=== PATIENT | male | born 1970 | race Two or more races ===

== ENCOUNTER 2019-01-18 16:00 | Emergency (ER) | payer SELFPAY ==
[~2019-01-18] VITALS: Ht 152.4 cm; Wt 73.9 kg
[2019-01-18 16:10] VITALS: BP 132/80
[2019-01-18] MEDS ORDERED: UNOBMED (16:10)
--- NOTE | 2019-01-18 16:15 | NUR ---
ED Nurse Note: pt presents to ED c/o L rib pain from falling 2-3 hours ago at work. he rates his pain an 8 with movement and reports that it radiates to the front side. at rest the pain is a 5/10. pt denies any other symptoms at this time.
--- NOTE | 2019-01-18 16:44 | Diagnostic Imaging Report ---
Indication: Trauma, left-sided rib pain Technique: One view of the chest, 2 views of the left ribs Comparison: none Findings: Chest radiograph demonstrates a calcified granuloma in the right costophrenic sulcus. Lungs and pleural spaces are clear. The heart size is normal. No evidence of acute rib fracture. No pneumothorax Impression: No acute process Evidence of old granulomatous disease in the right lung
[2019-01-18] MEDS ORDERED: Ketorolac 30mg Inj IM ONE (16:45)
[2019-01-18] MEDS ORDERED: LIDODERM700 M1 TOPIC (16:48)
[2019-01-18] MEDS ORDERED: IBUPROFEN600 MG ORAL (16:48)
--- NOTE | 2019-01-18 16:48 | Emergency Room Report ---
History of Present Illness General Chief Complaint: Pain Source: Patient Present Illness HPI 48-year-old male with no significant past medical history here complaining of pain in the left sided ribs after a fall today. Patient reports that he was walking the street as he tripped he fell on the left side of his chest. Denies any head injury, loss of consciousness, dizziness, nausea vomiting. Patient rating the pain left medial chest 5 out of 10 without radiation. Denies tingling and numbness. Denies difficulty breathing, diffuse chest pain, shortness of breath. Has not taken medication for pain. Denies all other injuries. No tenderness is noted to palpation at the site of impact. No ecchymosis noted no crepitus noted, no hyperresonance auscultated Allergies: Coded Allergies: No Known Allergies (Unverified , 01/18/19) Patient History Past Medical History: see triage record Past Surgical History: unable to obtain Pertinent Family History: none Immunizations: UTD Reviewed Nursing Documentation: PMH: Agreed; PSxH: Agreed Nursing Documentation-PMH Past Medical History: No History, Except For Review of Systems All Other Systems: negative except mentioned in HPI Physical Exam Vital Signs Date Time Temp Pulse Resp B/P (MAP) Pulse Ox O2 Delivery O2 Flow Rate FiO2 01/18/19 16:05 98.4 71 18 132/80 (97) 98 Room Air Sp02 EP Interpretation: reviewed General Appearance: no apparent distress, alert, GCS 15, non-toxic Head: normocephalic, atraumatic Eyes: bilateral eye normal inspection, bilateral eye PERRL ENT: hearing grossly normal, normal pharynx, no angioedema, normal voice Neck: full range of motion, supple, supple/symm/no masses Respiratory: chest non-tender, lungs clear, normal breath sounds, no rhonchi, no respiratory distress, no wheezing, speaking full sentences Cardiovascular #1: regular rate, rhythm, no edema, no murmur, normal capillary refill Gastrointestinal: normal bowel sounds, non tender, soft, non-distended, no guarding, no rebound Genitourinary: normal inspection, no CVA tenderness Musculoskeletal: back normal, gait/station normal, normal range of motion, non- tender Neurologic: alert, oriented x3, responsive, motor strength/tone normal, sensory intact, speech normal Psychiatric: judgement/insight normal, memory normal, mood/affect normal, no suicidal/homicidal ideation Skin: no rash Lymphatic: no adenopathy Medical Decision Making PA Attestation All my diagnosis and treatment plans were reviewed ad discussed with my supervising physician Dr. Oh Diagnostic Impression: Primary Impression: Rib contusion ER Course 48-year-old male with no significant past medical history here complaining of pain in the left sided ribs after a fall today. Patient reports that he was walking the street as he tripped he fell on the left side of his chest. Denies any head injury, loss of consciousness, dizziness, nausea vomiting. Patient rating the pain left medial chest 5 out of 10 without radiation. Denies tingling and numbness. Denies difficulty breathing, diffuse chest pain, shortness of breath. Has not taken medication for pain. Denies all other injuries. No tenderness is noted to palpation at the site of impact. No ecchymosis noted no crepitus noted, no hyperresonance auscultated Ddx considered but are not limited to: Rib fracture versus contusion versus pneumothorax Vital signs: are WNL, pt. is afebrile H&PE are most consistent with rib contusion ORDERS: Chest x-ray, rib, ibuprofen, lidocaine patch ED INTERVENTIONS: Toradol DISCHARGE: At this time pt. is stable for d/c to home. Will provide printed patient care instructions, and any necessary prescriptions. Care plan and follow up instructions have been discussed with the patient prior to discharge. Take medication as directed follow-up with primary care provider if worsening symptoms return to the emergency room Chest X-Ray Diagnostic Results Chest X-Ray Diagnostic Results : Chest X-Ray Ordered: Yes # of Views/Limited/Complete: 1 View Indication: Other EP Interpretation: Yes PA Xray: Interpretation reviewed, by supervising MD, and agrees with findings. Interpretation: no consolidation, no effusion, no pneumothorax Impression: No acute disease Electronically Signed by: Brandee Ying PA-C Other X-Ray Diagnostic Results Other X-Ray Diagnostic Results : X-Ray ordered: Left-sided rib series # of Views/Limited Vs Complete: 3 View Indication: Pain EP Interpretation: Yes PA Xray: Interpretation reviewed, by supervising MD, and agrees with findings. Interpretation: no dislocation, no soft tissue swelling, no fractures Impression: No acute disease Electronically Signed by: Brandee Ying PA-C Last Vital Signs Date Time Temp Pulse Resp B/P (MAP) Pulse Ox O2 Delivery O2 Flow Rate FiO2 01/18/19 16:05 98.4 71 18 132/80 (97) 98 Room Air Disposition: HOME, SELF-CARE Condition: Stable Scripts Lidocaine Patch* (Lidoderm Patch*) 1 Each Adh..patch 1 PATCH TOPIC DAILY, #10 PATCH 0 Refills Patch(es) may remain in place for up to 12 hours in any 24-hour period. Prov: Brandee Pettit 01/18/19 Ibuprofen* (MOTRIN*) 600 Mg Tablet 600 MG ORAL Q6H PRN for For Pain, #30 TAB Prov: Brandee Pettit 01/18/19 Patient Instructions: Rib Contusion Additional Instructions: Take medication as directed follow-up with your primary care provider worsening symptoms return to the emergency room Brandee Pettit Jan 18, 2019 16:47
[2019-01-18 16:56] VITALS: BP 127/71
--- NOTE | 2019-01-18 16:58 | NUR ---
ER DISCHARGE NOTE: Patient is cleared to be discharged per ERMD, pt is aox4, on room air, with stable vital signs. pt was given dc and prescription instructions, pt was able to verbalize understanding, pt id band removed without complications. pt is able to ambulate with steady gait. pt took all belongings.
== END 2019-01-18 16:58 | disposition home or self-care (01) ==
LOC: EMR 16:46
DX: S20.212A Contusion of left front wall of thorax, initial encounter (principal); W01.0XXA Fall on same level from slipping, tripping and stumbling without subsequent striking against object, initial encounter; Y93.01 Activity, walking, marching and hiking; Y92.410 Unspecified street and highway as the place of occurrence of the external cause
CPT/HCPCS: 71101; 96372; 99283; J1885

== ENCOUNTER 2019-01-24 10:56 | Emergency (ER) | payer SELFPAY ==
[~2019-01-24] VITALS: Ht 165.9 cm; Wt 73.9 kg
[~2019-01-24 10:56] MED LIST: IBUPROFEN600 MG ORAL; LIDODERM700 M1 TOPIC; UNOBMED
[2019-01-24] MEDS ORDERED: HYDROcodone/Acetamin 5/325 tab ORAL ONE (11:30)
[2019-01-24] MEDS ORDERED: Cyclobenzaprine 10mg Tab ORAL ONE (11:30)
--- NOTE | 2019-01-24 11:30 | Emergency Room Report ---
History of Present Illness General Chief Complaint: Pain Source: Patient, Medical Record Present Illness HPI 48yo M comes to the ER with complaints of sharp, achy, moderate intensity, nonradiating left flank pain status post fall last week. He has tried Motrin and lidocaine patches with minimal relief, he denies hematuria, vomiting, diarrhea, and reports the pain is just not gotten much better. Also denies shortness of breath, chest pain, syncope, loss of consciousness, any other complaints. Allergies: Coded Allergies: No Known Allergies (Unverified , 01/18/19) Patient History Past Medical History: see triage record Social History: Denies: drug use Reviewed Nursing Documentation: PMH: Agreed; PSxH: Agreed Nursing Documentation-PMH Past Medical History: No History, Except For Hx Cardiac Problems: No - HIGH CHOLESTEROL Review of Systems All Other Systems: negative except mentioned in HPI Physical Exam Vital Signs Date Time Temp Pulse Resp B/P (MAP) Pulse Ox O2 Delivery O2 Flow Rate FiO2 01/24/19 11:03 98.2 76 18 127/83 (98) 96 Room Air Sp02 EP Interpretation: reviewed, normal General Appearance: no apparent distress, alert, non-toxic Head: normocephalic Eyes: bilateral eye normal inspection, bilateral eye PERRL, bilateral eye EOMI ENT: normal ENT inspection, hearing grossly normal, normal pharynx, no angioedema, normal voice, moist mucus membranes Neck: normal inspection, full range of motion, supple, supple/symm/no masses Respiratory: chest non-tender, lungs clear, normal breath sounds, chest symmetrical, palpation of chest normal Cardiovascular #1: normal peripheral pulses, regular rate, rhythm Cardiovascular #2: 2+ radial (R), 2+ radial (L) Gastrointestinal: normal inspection, non tender, soft, no mass, no guarding, no rebound Rectal: deferred Genitourinary: normal inspection, no CVA tenderness Musculoskeletal: back normal, gait/station normal, normal range of motion, non- tender, no calf tenderness Neurologic: alert, responsive, 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 Exam is unremarkable. CXR and CT a/p without acute dz. Patient given flexeril and norco here and feels better, will dc with pain control. Chest X-Ray Diagnostic Results Chest X-Ray Diagnostic Results : Chest X-Ray Ordered: Yes # of Views/Limited/Complete: 2 View Indication: Other - rib pain EP Interpretation: Yes Interpretation: no consolidation, no effusion, no pneumothorax, no acute cardiopulmonary disease Impression: No acute disease Electronically Signed by: Josefa Goodman MD CT/MRI/US Diagnostic Results CT/MRI/US Diagnostic Results : Imaging Test Ordered: ct abdomen/pelvis w/o contrast Impression per radiology read, no acute dz. Last Vital Signs Date Time Temp Pulse Resp B/P (MAP) Pulse Ox O2 Delivery O2 Flow Rate FiO2 01/24/19 11:03 98.2 76 18 127/83 (98) 96 Room Air Disposition: HOME, SELF-CARE Condition: Stable JOSEFA GOODMAN M.D Jan 24, 2019 11:30
--- NOTE | 2019-01-24 11:32 | NUR ---
ED Nurse Note: Patient walked in to ER c/o right side lateral pain related to s/p fall. Patient stated that he was walking and was not paying attention on the road, he slipped on the ground and landed on his side of his body. No bruising or any skin injury noted. Per patient he did not hit his head when he fell. Right now hes feeling aching pain on the left side of his body of pain scale of 8/10.
[2019-01-24 11:38] VITALS: BP 132/85
--- NOTE | 2019-01-24 11:51 | NUR ---
ED Nurse Note: patient was taken to CT room for CT scan
--- NOTE | 2019-01-24 12:00 | NUR ---
ED Nurse Note: Patient went back to the room
--- NOTE | 2019-01-24 12:25 | NUR ---
ED Nurse Note: Patient was taken to x-ray room for x-ray
--- NOTE | 2019-01-24 12:34 | NUR ---
ED Nurse Note: came back to the room from x-ray room
--- NOTE | 2019-01-24 12:48 | Diagnostic Imaging Report ---
Indication: Abdominal pain, status post trauma Technique: Spiral acquisitions obtained through the abdomen and pelvis. No oral contrast utilized, per emergency room physician request No IV contrast utilized, per referring physician request.. Multiplanar reconstructions were generated. Total dose length product 1197 mGycm. CTDIvol(s) 21 mGy. Dose reduction achieved using automated exposure control Comparison: None Findings: No evidence of bony fracture or soft tissue contusion demonstrated. No evidence of intraperitoneal or retroperitoneal bleed demonstrated. Lack of enteric contrast limits assessment of the GI tract. The appendix is normal. There are colonic diverticula. No evidence of diverticulitis. No small bowel distention. No free or loculated intraperitoneal gas or fluid is evident. The distal esophagus, stomach, duodenum are unremarkable. Lack of IV contrast limits assessment of the solid organs. The gallbladder is contracted, contains one or more gallstones. No biliary ductal dilatation demonstrated. The pancreas, spleen, adrenals, kidneys are unremarkable. No retroperitoneal or mesenteric mass or adenopathy. No pelvic mass or adenopathy. The prostate is prominent. The included lung bases demonstrate a calcified granuloma in the right costophrenic sulcus. Groundglass opacities are seen at the lung bases bilaterally. Impression: Limited assessment of the solid organs, due to lack of IV contrast administration. 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
[2019-01-24] MEDS ORDERED: CYCLOBENZAPRINE10 MG ORAL (13:06)
[2019-01-24] MEDS ORDERED: NORCO 5-325 TA1 EACH ORAL (13:07)
--- NOTE | 2019-01-24 13:12 | NUR ---
ER DISCHARGE NOTE: Patient is cleared to be discharged per ERMD, pt is aox4, on room air, with stable vital signs. pt was given dc and prescription instructions, pt was able to verbalize understanding, pt id band removed. pt is able to ambulate with steady gait. pt took all belongings.
--- NOTE | 2019-01-24 15:01 | Diagnostic Imaging Report ---
Indication: Chest pain Technique: 2 views of the chest Comparison: none Findings: Suboptimal inspiration. There are bilateral basilar atelectatic changes. There may be some infiltrate at the left lung base. The heart size is normal. The bones are unremarkable Impression: Bilateral basilar atelectasis and possibly left basilar infiltrate
== END 2019-01-24 13:12 | disposition home or self-care (01) ==
LOC: EMR 12:11
DX: R10.9 Unspecified abdominal pain (principal); R07.81 Pleurodynia; E78.00 Pure hypercholesterolemia, unspecified
CPT/HCPCS: 71046; 74176; 99284